=== PATIENT | male | born 1965 | race Caucasian/White ===

== ENCOUNTER → 2019-10-27 11:26 | Outpatient (BNVA) | payer SELFPAY | PROVIDERS: Family Provider Nurse Practitioner Family; Visit Provider Nurse Practitioner Family | DX: E07.9 Disorder of thyroid, unspecified (principal); F32.9 Major depressive disorder, single episode, unspecified; E03.9 Hypothyroidism, unspecified; E78.5 Hyperlipidemia, unspecified; M25.50 Pain in unspecified joint; I10 Essential (primary) hypertension | CPT/HCPCS: 80053; 80061; 84443; 84550 ==

== ENCOUNTER 2019-12-22 08:52 | Outpatient (CLI) | payer SELFPAY ==
--- NOTE | 2019-12-22 10:15 | US_ITS ---
WS: [id number] ULTRASOUND THYROID TECHNIQUE: Ultrasound of the thyroid. CLINICAL INFORMATION: elevated tsh COMPARISON: None. FINDINGS: Thyroid: Right and left thyroid lobes are small volume with normal echotexture. No thyroid nodules ar e present. Right thyroid lobe: 2.6 cm x 0.9 cm x 0.8 cm Left thyroid lobe: 1.5 cm x 0.8 cm x 0.9 cm. Isthmus: 0.5 mm. Cervical lymphadenopathy: None. US/US thyroid [id number] IMPRESSION: 1. Small volume thyroid with normal echotexture. Left thyroid volume 0.5 cc an d right thyroid volume 1 cc 2. No suspicious nodules.
== END 2019-12-22 08:53 | disposition home or self-care (01) ==
LOC: RAD 08:56
PROVIDERS: PCP Nurse Practitioner Family; Visit Provider Nurse Practitioner Family
DX: R94.6 Abnormal results of thyroid function studies (principal)
CPT/HCPCS: 76536

== ENCOUNTER → 2022-12-11 08:41 | Outpatient (BNVA) | payer MEDICAID, SELFPAY | PROVIDERS: PCP Nurse Practitioner Family; Visit Provider Nurse Practitioner Family | DX: R35.0 Frequency of micturition (principal); I10 Essential (primary) hypertension; E07.9 Disorder of thyroid, unspecified; R53.83 Other fatigue; M25.473 Effusion, unspecified ankle; Z12.5 Encounter for screening for malignant neoplasm of prostate; M10.9 Gout, unspecified; E03.9 Hypothyroidism, unspecified; R60.9 Edema, unspecified | CPT/HCPCS: 80053; 80061; 81000; 83880; 84443; 84550; 85025; G0103 ==